=== PATIENT | female | born 1985 | race Caucasian/White ===

== ENCOUNTER 2021-10-11 22:37 | Emergency (ER) | payer OTHER ==
[~2021-10-11] VITALS: Ht 165.1 cm; Wt 59.0 kg
[2021-10-11] MEDS ORDERED: TYLENOL (23:04)
[2021-10-11] MEDS ORDERED: PANADOL (23:04)
[2021-10-12] MEDS ORDERED: TUSNEL LIQUID178 ML PO (02:26)
[2021-10-12] MEDS ORDERED: DOLOGEN CAPLET1 EACH PO (02:26)
[2021-10-12] MEDS ORDERED: OSEL75CA PO (02:26)
== END 2021-10-12 02:38 | disposition home or self-care (01) ==
LOC: ER 22:37
DX: J09.X2 Influenza due to identified novel influenza A virus with other respiratory manifestations (principal); Z20.822 Contact with and (suspected) exposure to COVID-19